=== PATIENT | male | born 1965 | race Caucasian/White ===

== ENCOUNTER 2016-05-13 15:13 | Emergency (ER) | payer OTHER ==
--- NOTE | 2016-05-13 17:09 | DIAGNOSTIC IMAGING REPORT ---
PROCEDURE: XR CHEST 2 VIEW INDICATION: CHEST PAIN TECHNIQUE: PA and lateral views. COMPARISON: None. FINDINGS: Allowing for overlying wires and electrodes, lungs are clear. Heart and mediastinum are normal. Mild degenerative changes of the mid thoracic spine IMPRESSION: 1. Negative chest.
--- NOTE | 2016-05-13 20:26 | ED NURSING NOTES ---
Clinical Report - Nurses [facility] [address] [place] [address] 05/13/2016 15:13 Patient: PHILIP STRONG TRIAGE Triage time 1520. Acuity: LEVEL 3. Chief Complaint: CHEST PAIN. Alert. No acute distress. --15:27 Annel Hand 15:23 05/13/16. BP: 140/91. HR: 66. RR: 18. O2 saturation: 99%. Temp: 98.1 F. Pain level now 07/23. --15:27 Annel Hand. Weight: 90.7 kg. Height/Length: 72 inches. BMI: 27.1. --15:22 Annel Hand. Medications None. --15:25 Annel Hand. Allergies No Known Drug Allergy. --15:25 Annel Hand. History Arrived by private vehicle. Historian: patient. Accompanied by spouse. This started yesterday. ( Pt c/o dull achey cp x 1 day, constant, sts when you push on it pain radiates upwards and gets worse, sts he has been seen before for this and had a stress test 2 yrs ago that was clean). Treatment DIGITAL ACCOUNT DIRECTOR: None. SOCIAL HX: Alcohol use. Last drink was 5 years ago. History of drug use. (90 days ago). --15:27 Annel Hand. PROBLEMS: Pharyngitis. Chest Wall Pain. Abdominal Pain. --15:25 Annel Hand. ADDITIONAL SURGERIES: Tonsillectomy. --15:25 Annel Hand. Interventions ID band on patient. To treatment room. --15:27 Annel Hand. PHYSICAL ASSESSMENT Ambulatory to room. GENERAL / NEURO / PSYCH: Alert. Oriented X 4. Appears anxious. HEENT: Mucous membranes are pink. RESPIRATORY: Respirations not labored. Chest pain reproducible. Chest wall tenderness. Breath sounds within normal limits. CVS: Normal sinus rhythm noted. Heart sounds within normal limits. Pulses within normal limits. Capillary refill less than 2 seconds. GI / : Abdomen soft and nontender. EXTREMITIES: No lower extremity edema. SKIN: Skin is warm and dry. Normal skin turgor. Skin is non-tender. --15:28 Annel Hand. NURSING PROGRESS NOTES 15:28 05/13/2016 Site #1 started via IV in the right antecubital space with an 20g angiocath, with aseptic technique and good blood return; one attempt. Blood drawn: rainbow set. Labeled in the presence of the patient and sent to the lab. Saline lock flushed with 10 mL saline. --15:28 Annel Hand EKG time: (15:29). EKG was performed by a tech and shown to the ED physician. --15:31 Torres Guerrero 16:05. ( Pt out to Xray). --16:12 Giovanna Shannon 17:31 05/13/16. BP: 129/90. HR: 65. RR: 16. O2 saturation: 100%. --17:31 Annel Hand The patient reports no complaints and he is calm and resting quietly. Overall patient status is the same- he states feels the same. ( Pt playing on phone sitting up in stretcher). Patient informed about reason for wait. Patient waiting for lab results. --17:31 Annel Hand 18:41 05/13/16. BP: 130/86. HR: 68. RR: 12. O2 saturation: 100%. Pain level now 4/10. --18:42 Annel Hand The patient reports no complaints and he is calm and resting quietly. Patient and family informed about reason for wait. Patient waiting for disposition. --18:42 Annel Hand 20:38 05/13/2016 Site #1 removed upon discharge. Bandage applied. --20:38 Annel Hand. DISPOSITION / DISCHARGE Departure time: 2034. Condition at departure: unchanged and stable. No learning barriers present. Discharge instructions provided and reviewed with the patient and spouse. Reviewed medication(s). Patient and spouse verbalized understanding. Written instructions provided in Pakistani. The patient was discharged by the physician. He was discharged home and accompanied by spouse. He left the Emergency Department ambulatory and via private vehicle. Spouse driving. --20:38 Annel Hand 20:37 05/13/16. BP: 122/80. HR: 80. RR: 16. O2 saturation: 99%. Pain level now 07/23. --20:38 Annel Hand. Locked/Released at 05/13/2016 20:39 by Annel Hand,
--- NOTE | 2016-05-13 20:26 | ED ORDER SUMMARY ---
..... Patient: PHILIP STRONG OrderSheet [facility] VisitID: [id number] [place] [address] 51y, M Registration Date/Time: 05/13/2016 ORDER SHEET Weight: 90.7 kg Allergies: No Known Drug Allergy GENERAL ORDERS: CBC w Diff Urgent (15:43 05/13/2016 EBonham per protocol) (15:44 Ansley Delvalle) (Cancelled: Duplicate Order15:45 Ansley Delvalle) (Ack 15:47 RKaruga) CMP Urgent (15:43 05/13/2016 EBonham per protocol) (15:44 Ansley Delvalle) (Cancelled: Duplicate Order15:45 Ansley Delvalle) (Ack 15:47 RKaruga) Cardiac Panel Stat (15:43 05/13/2016 EBonham per protocol) (15:44 Ansley Delvalle) (Cancelled: Duplicate Order15:45 Ansley Delvalle) (Ack 15:47 RKaruga) EKG - ER Stat (15:43 05/13/2016 EBonham per protocol) (Ack 15:47 RKaruga) Chest 2V Urgent (15:44 05/13/2016 Ansley Delvalle) (Ack 16:01 RKaruga) (16:11 RKaruga) Sales Account Manager (Continuous) (cp) (15:44 05/13/2016 Ansley Delvalle) (15:45 EBonham) CBC w Diff Urgent (15:44 05/13/2016 Ansley Delvalle) (Ack 16:01 RKmayuga) CMP Urgent (15:44 05/13/2016 Ansley Delvalle) (Ack 16:01 Breanna) Troponin-I Urgent (15:44 05/13/2016 Ansley Delvalle) (Ack 16:01 Boni) Pulse oximeter (15:44 05/13/2016 Ansley Delvalle) (15:45 EBonham) EKG - ER Stat (15:44 05/13/2016 Ansley Delvalle) (16:03 RKaruga) Troponin-I (draw 2 hours after first troponin drawn) Urgent (17:11 05/13/2016 Ansley Delvalle) (Ack 17:16 RKaruga) Consult - Senior Business Manager (18:53 05/13/2016 Ansley Delvalle) (19:59 LTapper) CPK Urgent (19:51 05/13/2016 Ansley Delvalle) (Ack 19:59 LTapper) MEDICATION ORDERS: IV FLUIDS: IV Saline Lock (15:44 05/13/2016 Ansley Delvalle) (15:48 [facility]) ORDER SHEET NOTES: [Electronically signed by Annel Hand (20:39 05/13/2016)] [Electronically signed by Ramón Marques Dr. (09:18 05/16/2016)] [Electronically locked/signed by Annel Hand (20:39 05/13/2016)]
--- NOTE | 2016-05-13 20:26 | ED NURSING NOTES ---
Clinical Report - Nurses [facility] [address] [place] [address] 05/13/2016 15:13 Patient: PHILIP STRONG TRIAGE Triage time 1520. Acuity: LEVEL 3. Chief Complaint: CHEST PAIN. Alert. No acute distress. --15:27 Annel Hand 15:23 05/13/16. BP: 140/91. HR: 66. RR: 18. O2 saturation: 99%. Temp: 98.1 F. Pain level now 07/23. --15:27 Annel Hand. Weight: 90.7 kg. Height/Length: 72 inches. BMI: 27.1. --15:22 Annel Hand. Medications None. --15:25 Annel Hand. Allergies No Known Drug Allergy. --15:25 Annel Hand. History Arrived by private vehicle. Historian: patient. Accompanied by spouse. This started yesterday. ( Pt c/o dull achey cp x 1 day, constant, sts when you push on it pain radiates upwards and gets worse, sts he has been seen before for this and had a stress test 2 yrs ago that was clean). Treatment DRYWALL CONTRACTOR: None. SOCIAL HX: Alcohol use. Last drink was 5 years ago. History of drug use. (90 days ago). --15:27 Annel Hand. PROBLEMS: Pharyngitis. Chest Wall Pain. Abdominal Pain. --15:25 Annel Hand. ADDITIONAL SURGERIES: Tonsillectomy. --15:25 Annel Hand. Interventions ID band on patient. To treatment room. --15:27 Annel Hand. PHYSICAL ASSESSMENT Ambulatory to room. GENERAL / NEURO / PSYCH: Alert. Oriented X 4. Appears anxious. HEENT: Mucous membranes are pink. RESPIRATORY: Respirations not labored. Chest pain reproducible. Chest wall tenderness. Breath sounds within normal limits. CVS: Normal sinus rhythm noted. Heart sounds within normal limits. Pulses within normal limits. Capillary refill less than 2 seconds. GI / : Abdomen soft and nontender. EXTREMITIES: No lower extremity edema. SKIN: Skin is warm and dry. Normal skin turgor. Skin is non-tender. --15:28 Annel Hand. NURSING PROGRESS NOTES 15:28 05/13/2016 Site #1 started via IV in the right antecubital space with an 20g angiocath, with aseptic technique and good blood return; one attempt. Blood drawn: rainbow set. Labeled in the presence of the patient and sent to the lab. Saline lock flushed with 10 mL saline. --15:28 Annel Hand EKG time: (15:29). EKG was performed by a tech and shown to the ED physician. --15:31 Torres Guerrero 16:05. ( Pt out to Xray). --16:12 Giovanna Shannon 17:31 05/13/16. BP: 129/90. HR: 65. RR: 16. O2 saturation: 100%. --17:31 Annel Hand The patient reports no complaints and he is calm and resting quietly. Overall patient status is the same- he states feels the same. ( Pt playing on phone sitting up in stretcher). Patient informed about reason for wait. Patient waiting for lab results. --17:31 Annel Hand 18:41 05/13/16. BP: 130/86. HR: 68. RR: 12. O2 saturation: 100%. Pain level now 4/10. --18:42 Annel Hand The patient reports no complaints and he is calm and resting quietly. Patient and family informed about reason for wait. Patient waiting for disposition. --18:42 Annel Hand 20:38 05/13/2016 Site #1 removed upon discharge. Bandage applied. --20:38 Annel Hand. DISPOSITION / DISCHARGE Departure time: 2034. Condition at departure: unchanged and stable. No learning barriers present. Discharge instructions provided and reviewed with the patient and spouse. Reviewed medication(s). Patient and spouse verbalized understanding. Written instructions provided in Greenlandic. The patient was discharged by the physician. He was discharged home and accompanied by spouse. He left the Emergency Department ambulatory and via private vehicle. Spouse driving. --20:38 Annel Hand 20:37 05/13/16. BP: 122/80. HR: 80. RR: 16. O2 saturation: 99%. Pain level now 07/23. --20:38 Annel Hand. Locked/Released at 05/13/2016 20:39 by Annel Hand,
--- NOTE | 2016-05-13 20:26 | ED ORDER SUMMARY ---
..... Patient: PHILIP STRONG OrderSheet [facility] VisitID: [id number] [place] [address] 51y, M Registration Date/Time: 05/13/2016 ORDER SHEET Weight: 90.7 kg Allergies: No Known Drug Allergy GENERAL ORDERS: CBC w Diff Urgent (15:43 05/13/2016 EBonham per protocol) (15:44 Ansley Delvalle) (Cancelled: Duplicate Order15:45 Ansley Delvalle) (Ack 15:47 RKaruga) CMP Urgent (15:43 05/13/2016 EBonham per protocol) (15:44 Ansley Delvalle) (Cancelled: Duplicate Order15:45 Ansley Delvalle) (Ack 15:47 RKaruga) Cardiac Panel Stat (15:43 05/13/2016 EBonham per protocol) (15:44 Ansley Delvalle) (Cancelled: Duplicate Order15:45 Ansley Delvalle) (Ack 15:47 RKaruga) EKG - ER Stat (15:43 05/13/2016 EBonham per protocol) (Ack 15:47 RKaruga) Chest 2V Urgent (15:44 05/13/2016 Ansley Delvalle) (Ack 16:01 RKaruga) (16:11 RKaruga) User Experience Researcher (Continuous) (cp) (15:44 05/13/2016 Ansley Delvalle) (15:45 EBonham) CBC w Diff Urgent (15:44 05/13/2016 Ansley Delvalle) (Ack 16:01 RKmayuga) CMP Urgent (15:44 05/13/2016 Ansley Delvalle) (Ack 16:01 Breanna) Troponin-I Urgent (15:44 05/13/2016 Ansley Delvalle) (Ack 16:01 Boni) Pulse oximeter (15:44 05/13/2016 Ansley Delvalle) (15:45 EBonham) EKG - ER Stat (15:44 05/13/2016 Ansley Delvalle) (16:03 RKaruga) Troponin-I (draw 2 hours after first troponin drawn) Urgent (17:11 05/13/2016 Ansley Delvalle) (Ack 17:16 RKaruga) Consult - Servicing Manager (18:53 05/13/2016 Ansley Delvalle) (19:59 LTapper) CPK Urgent (19:51 05/13/2016 Ansley Delvalle) (Ack 19:59 LTapper) MEDICATION ORDERS: IV FLUIDS: IV Saline Lock (15:44 05/13/2016 Ansley Delvalle) (15:48 [facility]) ORDER SHEET NOTES: [Electronically signed by Annel Hand (20:39 05/13/2016)] [Electronically signed by Ramón Marques Dr. (09:18 05/16/2016)] [Electronically locked/signed by Annel Hand (20:39 05/13/2016)]
--- NOTE | 2016-05-13 20:26 | ED CLINICAL REPORT ---
Clinical Report - Physicians/Mid Levels [facility] [address] [place] [address] 05/13/2016 15:13 Patient: PHILIP STRONG Arrived- By private vehicle. Historian- patient. HISTORY OF PRESENT ILLNESS Chief Complaint: CHEST PAIN. At its maximum, severity described as moderate. When seen in the E.D., severity described as mild. Modifying factors- (reports it is not exertional). Not worsened by anything. Not relieved by anything. 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 It was abrupt in onset and has been constant but is not gone now. Onset during light activity. It is described as located in the left chest area. No radiation. No nausea, vomiting, difficulty breathing or diaphoresis. (reports not hemoptysis, leg swelling, recent trauma/surgery). No additional chest pain. Similar symptoms previously: (a few times but was not diagnosed with anything). ( reports normal stress test several years ago. states he is unsure if it was throught his PCP or cardiology.). Recent medical care: Not recently seen/assessed. REVIEW OF SYSTEMS No pedal edema, calf pain or skin rash. All systems otherwise negative, except as recorded above. PAST HISTORY Denies the following risk factors for DVT/PE - history of DVT and pulmonary embolism, recent surgery, recent TX and congestive heart failure. Denies the following risk factors for DVT/PE - cancer, clotting disorder, estrogens, obesity and immobility. Denies the following risk factors for DVT/PE - advanced in age and vena cava filter. SOCIAL HISTORY Never smoker. History of drug use in the past: marijuana. No alcohol use. Is a local resident. FAMILY HISTORY History of heart disease (no early family history). ADDITIONAL NOTES The nursing notes have been reviewed. PHYSICAL EXAM Vital Signs: 05/13/2016 15:23 BP: 140/91. HR: 66. RR: 18. O2 saturation: 99%. Temp: 98.1 F. Blood pressure normal. Oxygen saturation normal. Appearance: Alert. Oriented X3. No acute distress. Eyes: Pupils equal, round and reactive to light. Eyes normal inspection. ENT: Ears normal. Nose normal. Pharynx normal. Neck: Normal inspection. Neck supple. No JVD. CVS: Normal heart rate and rhythm. Heart sounds normal. Pulses normal. No decreased pulses. Respiratory: No respiratory distress. Breath sounds normal. No rales, rhonchi or wheezes. (reportducible pain at the left 3rd costosternal joint). Abdomen: Soft and nontender. Bowel sounds normal. Back: Normal external inspection. Skin: Skin warm and dry. Normal skin color. No rash. Normal skin turgor. Extremities: Extremities exhibit normal ROM. No lower extremity edema. LABS, X-RAYS, AND EKG EKG: No acute process. No acute ischemia. Normal EKG. Normal sinus rhythm. Rate: 62. Normal P waves. Normal CONI. Normal QRS complex. Normal axis. Normal ST and T waves, QT and QTc. The study has been interpreted contemporaneously by me. The study has been independently viewed by me. The EKG appears to be a good tracing. Chest X-ray: No acute disease. Normal lung markings present. Normal heart size. Mediastinum normal. Great vessels normal. No infiltrate. Views: PA and lateral. Technique: good. The X-rays were independently viewed by me and interpreted contemporaneously by me. Laboratory Tests: CBC w Diff: (TEOFILO: 05/13/2016 15:30) ( MsgRcvd 05/13/2016 16:32) Final results Test Result Flag Units (Reference) WHITE BLOOD COUNT 5.9 K/uL (4.5-11.5) RED BLOOD COUNT 5.07 M/uL (4.50-5.90) HEMOGLOBIN 15.8 gm/dL (13.5-17.5) HEMATOCRIT 46.3 % (41.0-53.0) MEAN CELL VOLUME 91 fL (80-100) MEAN CORPUSCULAR HGB 31 pg (26-34) MEAN CORPUSCULAR HGB CONC 34 g/dL (31-37) RED CELL DISTRIBUTION WIDTH 12.8 % (11.6-14.8) PLATELET COUNT 213 K/uL (150-400) NEUTROPHIL % 54.3 % (50-75) LYMPH % 32.4 % (25-40) MONO % 8.1 % (3-14) EOSINOPHIL % 4.6 H % (0-4) BASOPHIL % 0.6 % (0-2) Troponin-I: (TEOFILO: 05/13/2016 17:38) ( MsgRcvd 05/13/2016 18:09) Final results Test Result Flag Units (Reference) TROPONIN I <0.05 ng/mL (0.00-1.5) TROPONIN REFERENCE RANGE:<0.1 NEGATIVE0.1-1.5 INDETERMINANT>1.5 POSITIVE CMP: (TEOFILO: 05/13/2016 15:30) ( MsgRcvd 05/13/2016 16:49) Final results Test Result Flag Units (Reference) GLUCOSE 104 mg/dL (70-110) BUN 19 H mg/dL (7-18) CREATININE 0.8 mg/dL (0.6-1.3) Estimated GFR >60 mL/min Estimated GFR- >60 mL/min Note: Persistent reduction over 3 months in eGFR<60 mL/min/1.73 m2 defines CKD. Patients with eGFR values>=60 mL/min/1.73 m2 may also have CKD if evidence ofpersistent proteinuria. Additional information may be foundat www.kidney.org. SODIUM 141 mmol/L (136-145) POTASSIUM 3.9 mmol/L (3.5-5.1) CHLORIDE 105 mmol/L (98-107) CARBON DIOXIDE 27 mmol/L (21-32) CALCIUM 8.8 mg/dL (8.5-10.1) TOTAL PROTEIN 7.3 g/dL (6.4-8.2) ALBUMIN 4.3 g/dL (3.3-5.0) BILIRUBIN, TOTAL 1.8 H mg/dL (0.0-1.0) ALKALINE PHOSPHATASE 70 U/L (46-116) AST (SGOT) 20 U/L (15-37) ALT (SGPT) 47 U/L (12-78) TROPONIN I 0.07 ng/mL (0.00-1.5) TROPONIN REFERENCE RANGE:<0.1 NEGATIVE0.1-1.5 INDETERMINANT>1.5 POSITIVE . PROGRESS AND PROCEDURES Course of Care: The patient is a pleasant 51 yo male with no pertinent past medical history presenting for chest pain. Symptoms have been going < 8 hours. Will need delta trop. Patient agreeable to work up. Patient currently PERC negative. Do not feel patient needs further work up for PE. Symptoms not consitent with thoracic AA. Patient to be evuated with labs, chest, xray, and EKG. EKG does not show any acute abnormalities. Patient updated on study. Reports feeling well. Chest xray and first troponin are normal. Trop undetectable. Second one to be drawn at 2 hours. Work up shows patient to have negative delta trop. patient resting in no acute distress. Cardiology consulted in regards to patient's presentation. Patient offered admission and further work up for cardiac disease. After discussion with patient about the possibilities of studies and reasons for doing so, patient reports he would like to follow up in the clinic. Patient understands the risk and benefits. Discussed with patient work up, diagnosis, home care, follow up, and return precautions. All questions answered. Patient expressed understanding of these instructions and was agreeable to them. Consult obtained from cardiology. Disposition: Discharged. Condition: good. CLINICAL IMPRESSION 05/13/2016 18:41 BP: 130/86. HR: 68. RR: 12. O2 saturation: 100%. Blood pressure normal. Oxygen saturation normal. Atypical chest pain .12 lead EKG performed. (acute left sided). INSTRUCTIONS Warnings: GENERAL WARNINGS: Return or contact your physician immediately if your condition worsens or changes unexpectedly, if not improving as expected, or if other problems arise. SPECIFICALLY, return if you develop chest, neck, jaw, shoulder, arm, or back pain, difficulty breathing, a fluttering sensation in your chest, lightheadedness, fainting, excessive fatigue, or sudden sweating. Your Current Medications: CONTINUE TAKING THE FOLLOWING MEDICATIONS: None*. OTC Medications: Aspirin 81 mg (available over the counter): take 1 orally every 24 hours. Dispense thirty (30). No refills. Follow-up: Return to the emergency department as needed. Follow up with your doctor in three days. Reason for referral: recheck today's concerns. Summary of care provided to patient via paper. Screening today revealed the patient's blood pressure to be in the normal range. The patient should follow up with a primary care provider for blood pressure management. Understanding of the discharge instructions verbalized by patient. Follow-up with: Rodrick Soto MD, Cardiology, , [facility] - Cardiology, [address] [place] [address] [address], [facility], [address] Follow up in three days. Reason for referral: recheck today's concerns. Summary of care provided to patient via paper. (Electronically signed by Ramón Marques Dr. 05/16/2016 9:18)
--- NOTE | 2016-05-13 20:26 | ED CLINICAL REPORT ---
Clinical Report - Physicians/Mid Levels [facility] [address] [place] [address] 05/13/2016 15:13 Patient: PHILIP STRONG Arrived- By private vehicle. Historian- patient. HISTORY OF PRESENT ILLNESS Chief Complaint: CHEST PAIN. At its maximum, severity described as moderate. When seen in the E.D., severity described as mild. Modifying factors- (reports it is not exertional). Not worsened by anything. Not relieved by anything. This started today a few hours [employer] and is still present but is improving. It was abrupt in onset and has been constant but is not gone now. Onset during light activity. It is described as located in the left chest area. No radiation. No nausea, vomiting, difficulty breathing or diaphoresis. (reports not hemoptysis, leg swelling, recent trauma/surgery). No additional chest pain. Similar symptoms previously: (a few times but was not diagnosed with anything). ( reports normal stress test several years ago. states he is unsure if it was throught his PCP or cardiology.). Recent medical care: Not recently seen/assessed. REVIEW OF SYSTEMS No pedal edema, calf pain or skin rash. All systems otherwise negative, except as recorded above. PAST HISTORY Denies the following risk factors for DVT/PE - history of DVT and pulmonary embolism, recent surgery, recent CA and congestive heart failure. Denies the following risk factors for DVT/PE - cancer, clotting disorder, estrogens, obesity and immobility. Denies the following risk factors for DVT/PE - advanced in age and vena cava filter. SOCIAL HISTORY Never smoker. History of drug use in the past: marijuana. No alcohol use. Is a local resident. FAMILY HISTORY History of heart disease (no early family history). ADDITIONAL NOTES The nursing notes have been reviewed. PHYSICAL EXAM Vital Signs: 05/13/2016 15:23 BP: 140/91. HR: 66. RR: 18. O2 saturation: 99%. Temp: 98.1 F. Blood pressure normal. Oxygen saturation normal. Appearance: Alert. Oriented X3. No acute distress. Eyes: Pupils equal, round and reactive to light. Eyes normal inspection. ENT: Ears normal. Nose normal. Pharynx normal. Neck: Normal inspection. Neck supple. No JVD. CVS: Normal heart rate and rhythm. Heart sounds normal. Pulses normal. No decreased pulses. Respiratory: No respiratory distress. Breath sounds normal. No rales, rhonchi or wheezes. (reportducible pain at the left 3rd costosternal joint). Abdomen: Soft and nontender. Bowel sounds normal. Back: Normal external inspection. Skin: Skin warm and dry. Normal skin color. No rash. Normal skin turgor. Extremities: Extremities exhibit normal ROM. No lower extremity edema. LABS, X-RAYS, AND EKG EKG: No acute process. No acute ischemia. Normal EKG. Normal sinus rhythm. Rate: 62. Normal P waves. Normal CONI. Normal QRS complex. Normal axis. Normal ST and T waves, QT and QTc. The study has been interpreted contemporaneously by me. The study has been independently viewed by me. The EKG appears to be a good tracing. Chest X-ray: No acute disease. Normal lung markings present. Normal heart size. Mediastinum normal. Great vessels normal. No infiltrate. Views: PA and lateral. Technique: good. The X-rays were independently viewed by me and interpreted contemporaneously by me. Laboratory Tests: CBC w Diff: (TEOFILO: 05/13/2016 15:30) ( MsgRcvd 05/13/2016 16:32) Final results Test Result Flag Units (Reference) WHITE BLOOD COUNT 5.9 K/uL (4.5-11.5) RED BLOOD COUNT 5.07 M/uL (4.50-5.90) HEMOGLOBIN 15.8 gm/dL (13.5-17.5) HEMATOCRIT 46.3 % (41.0-53.0) MEAN CELL VOLUME 91 fL (80-100) MEAN CORPUSCULAR HGB 31 pg (26-34) MEAN CORPUSCULAR HGB CONC 34 g/dL (31-37) RED CELL DISTRIBUTION WIDTH 12.8 % (11.6-14.8) PLATELET COUNT 213 K/uL (150-400) NEUTROPHIL % 54.3 % (50-75) LYMPH % 32.4 % (25-40) MONO % 8.1 % (3-14) EOSINOPHIL % 4.6 H % (0-4) BASOPHIL % 0.6 % (0-2) Troponin-I: (TEOFILO: 05/13/2016 17:38) ( MsgRcvd 05/13/2016 18:09) Final results Test Result Flag Units (Reference) TROPONIN I <0.05 ng/mL (0.00-1.5) TROPONIN REFERENCE RANGE:<0.1 NEGATIVE0.1-1.5 INDETERMINANT>1.5 POSITIVE CMP: (TEOFILO: 05/13/2016 15:30) ( MsgRcvd 05/13/2016 16:49) Final results Test Result Flag Units (Reference) GLUCOSE 104 mg/dL (70-110) BUN 19 H mg/dL (7-18) CREATININE 0.8 mg/dL (0.6-1.3) Estimated GFR >60 mL/min Estimated GFR- >60 mL/min Note: Persistent reduction over 3 months in eGFR<60 mL/min/1.73 m2 defines CKD. Patients with eGFR values>=60 mL/min/1.73 m2 may also have CKD if evidence ofpersistent proteinuria. Additional information may be foundat www.kidney.org. SODIUM 141 mmol/L (136-145) POTASSIUM 3.9 mmol/L (3.5-5.1) CHLORIDE 105 mmol/L (98-107) CARBON DIOXIDE 27 mmol/L (21-32) CALCIUM 8.8 mg/dL (8.5-10.1) TOTAL PROTEIN 7.3 g/dL (6.4-8.2) ALBUMIN 4.3 g/dL (3.3-5.0) BILIRUBIN, TOTAL 1.8 H mg/dL (0.0-1.0) ALKALINE PHOSPHATASE 70 U/L (46-116) AST (SGOT) 20 U/L (15-37) ALT (SGPT) 47 U/L (12-78) TROPONIN I 0.07 ng/mL (0.00-1.5) TROPONIN REFERENCE RANGE:<0.1 NEGATIVE0.1-1.5 INDETERMINANT>1.5 POSITIVE . PROGRESS AND PROCEDURES Course of Care: The patient is a pleasant 51 yo male with no pertinent past medical history presenting for chest pain. Symptoms have been going < 8 hours. Will need delta trop. Patient agreeable to work up. Patient currently PERC negative. Do not feel patient needs further work up for PE. Symptoms not consitent with thoracic AA. Patient to be evuated with labs, chest, xray, and EKG. EKG does not show any acute abnormalities. Patient updated on study. Reports feeling well. Chest xray and first troponin are normal. Trop undetectable. Second one to be drawn at 2 hours. Work up shows patient to have negative delta trop. patient resting in no acute distress. Cardiology consulted in regards to patient's presentation. Patient offered admission and further work up for cardiac disease. After discussion with patient about the possibilities of studies and reasons for doing so, patient reports he would like to follow up in the clinic. Patient understands the risk and benefits. Discussed with patient work up, diagnosis, home care, follow up, and return precautions. All questions answered. Patient expressed understanding of these instructions and was agreeable to them. Consult obtained from cardiology. Disposition: Discharged. Condition: good. CLINICAL IMPRESSION 05/13/2016 18:41 BP: 130/86. HR: 68. RR: 12. O2 saturation: 100%. Blood pressure normal. Oxygen saturation normal. Atypical chest pain .12 lead EKG performed. (acute left sided). INSTRUCTIONS Warnings: GENERAL WARNINGS: Return or contact your physician immediately if your condition worsens or changes unexpectedly, if not improving as expected, or if other problems arise. SPECIFICALLY, return if you develop chest, neck, jaw, shoulder, arm, or back pain, difficulty breathing, a fluttering sensation in your chest, lightheadedness, fainting, excessive fatigue, or sudden sweating. Your Current Medications: CONTINUE TAKING THE FOLLOWING MEDICATIONS: None*. OTC Medications: Aspirin 81 mg (available over the counter): take 1 orally every 24 hours. Dispense thirty (30). No refills. Follow-up: Return to the emergency department as needed. Follow up with your doctor in three days. Reason for referral: recheck today's concerns. Summary of care provided to patient via paper. Screening today revealed the patient's blood pressure to be in the normal range. The patient should follow up with a primary care provider for blood pressure management. Understanding of the discharge instructions verbalized by patient. Follow-up with: Rodrick Soto MD, Cardiology, , [facility], [address] [place] [address] [address], [facility], [address] Follow up in three days. Reason for referral: recheck today's concerns. Summary of care provided to patient via paper. (Electronically signed by Ramón Marques Dr. 05/16/2016 9:18)
--- NOTE | 2016-05-16 09:18 | ED DISCHARGE INSTRUCTIONS ---
Patient: PHILIP STRONG General Instructions [facility] VisitID: [id number] [place] [address] 51y, M Registration Date/Time: 05/13/2016 05/13/2016 18:41 BP: 130/86. HR: 68. RR: 12. O2 saturation: 100%. Blood pressure normal. Oxygen saturation normal. Atypical chest pain .12 lead EKG performed. (acute left sided). INSTRUCTIONS Warnings: GENERAL WARNINGS: Return or contact your physician immediately if your condition worsens or changes unexpectedly, if not improving as expected, or if other problems arise. SPECIFICALLY, return if you develop chest, neck, jaw, shoulder, arm, or back pain, difficulty breathing, a fluttering sensation in your chest, lightheadedness, fainting, excessive fatigue, or sudden sweating. Your Current Medications: CONTINUE TAKING THE FOLLOWING MEDICATIONS: None*. OTC Medications: Aspirin 81 mg (available over the counter): take 1 orally every 24 hours. Dispense thirty (30). No refills. Follow-up: Return to the emergency department as needed. Follow up with your doctor in three days. Reason for referral: recheck today's concerns. Summary of care provided to patient via paper. Screening today revealed the patient's blood pressure to be in the normal range. The patient should follow up with a primary care provider for blood pressure management. Understanding of the discharge instructions verbalized by patient. Follow-up with: Rodrick Soto MD, Cardiology, , [facility], [address] [place] [address] Follow up in three days. Reason for referral: recheck today's concerns. Summary of care provided to patient via paper. ADDITIONAL INFORMATION Chest Pain, Uncertain Cause Chest pain can happen for a number of reasons. Sometimes the cause can not be determined. If yourcondition does not seem serious, and your pain does not appear to be coming from your heart, your doctor may recommend watching it closely. Sometimes the signs of a serious problem take more time to appear. Therefore, watch for the warning signs listed below. Home care After your visit, follow these recommendations: Rest today and avoid strenuous activity. Take any prescribed medicine as directed. Follow-up care Follow up with your doctor or this facility as instructed or if you do not start to feel better within 24 hours. Call 911 Get immediate medical attention if any of the following occur: A change in the type of pain: if it feels different, becomes more severe, lasts longer, or begins to spread into your shoulder, arm, neck, jaw or back Shortness of breath or increased pain with breathing Weakness, dizziness, or fainting Rapid heart beat Get prompt medical attention Call your doctor right away if any of the following occur: Cough with dark colored sputum (phlegm) or blood Fever of 100.4F(38C) or higher, or as directed by your health care provider Swelling, pain or redness in one leg Aspirin Oral tablet What is this medicine? ASPIRIN ( pir in) is a pain reliever. It is used to treat mild pain and fever. This medicine is also used as directed by a doctor to prevent and to treat heart attacks, to prevent strokes, and to treat arthritis or inflammation. How should I use this medicine? Take this medicine by mouth with a glass of water. Follow the directions on the package or prescription label. You can take this medicine with or without food. If it upsets your stomach, take it with food. Do not take your medicine more often than directed. Talk to your biology manager regarding the use of this medicine in children. While this drug may be prescribed for children as young as 12 years of age for selected conditions, precautions do apply. Children and teenagers should not use this medicine to treat chicken pox or flu symptoms unless directed by a doctor. Patients over 65 years old may have a stronger reaction and need a smaller dose. What side effects may I notice from receiving this medicine? Side effects that you should report to your doctor or health acute care nurse as soon as possible: allergic reactions like skin rash, itching or hives, swelling of the face, lips, or tongue breathing problems changes in hearing, ringing in the ears confusion general ill feeling or flu-like symptoms pain on swallowing redness, blistering, peeling or loosening of the skin, including inside the mouth or nose signs and symptoms of bleeding such as bloody or black, tarry stools; red or dark-brown urine; spitting up blood or brown material that looks like coffee grounds; red spots on the skin; unusual bruising or bleeding from the eye, gums, or nose trouble passing urine or change in the amount of urine unusually weak or tired yellowing of the eyes or skin Side effects that usually do not require medical attention (report to your doctor or health acute care nurse if they continue or are bothersome): diarrhea or constipation nausea, vomiting stomach gas, heartburn What may interact with this medicine? Do not take this medicine with any of the following medications: cidofovir ketorolac probenecid This medicine may also interact with the following medications: alcohol alendronate bismuth subsalicylate flavocoxid herbal supplements like feverfew, garlic, ruth ann, ginkgo biloba, horse chestnut medicines for diabetes or glaucoma like acetazolamide, methazolamide medicines for gout medicines that treat or prevent blood clots like enoxaparin, heparin, ticlopidine, warfarin other aspirin and aspirin-like medicines NSAIDs, medicines for pain and inflammation, like ibuprofen or naproxen pemetrexed sulfinpyrazone varicella live vaccine What if I miss a dose? If you are taking this medicine on a regular schedule and miss a dose, take it as soon as you can. If it is almost time for your next dose, take only that dose. Do not take double or extra doses. Where should I keep my medicine? Keep out of the reach of children. Store at room temperature between 15 and 30 degrees C (59 and 86 degrees F). Protect from heat and moisture. Do not use this medicine if it has a strong vinegar smell. Throw away any unused medicine after the expiration date. What should I tell my health care provider before I take this medicine? They need to know if you have any of these conditions: anemia asthma bleeding problems child with chickenpox, the flu, or other viral infection diabetes gout if you frequently drink alcohol containing drinks kidney disease liver disease low level of vitamin K lupus smoke tobacco stomach ulcers or other problems an unusual or allergic reaction to aspirin, tartrazine dye, other medicines, dyes, or preservatives or trying to get breast-feeding What should I watch for while using this medicine? If you are treating yourself for pain, tell your doctor or health acute care nurse if the pain lasts more than 10 days, if it gets worse, or if there is a new or different kind of pain. Tell your doctor if you see redness or swelling. Also, check with your doctor if you have a fever that lasts for more than 3 days. Only take this medicine to prevent heart attacks or blood clotting if prescribed by your doctor or health acute care nurse. Do not take aspirin or aspirin-like medicines with this medicine. Too much aspirin can be dangerous. Always read the labels carefully. This medicine can irritate your stomach or cause bleeding problems. Do not smoke cigarettes or drink alcohol while taking this medicine. Do not lie down for 30 minutes after taking this medicine to prevent irritation to your throat. If you are scheduled for any medical or dental procedure, tell your healthcare provider that you are taking this medicine. You may need to stop taking this medicine before the procedure. You have been given the following additional information: Chest Pain, Uncertain Cause Aspirin Oral tablet (Electronically signed by Ramón Marques Dr. 05/16/2016 9:18)
--- NOTE | 2016-05-16 09:18 | ED DISCHARGE INSTRUCTIONS ---
Patient: PHILIP STRONG General Instructions [facility] VisitID: [id number] [place] [address] 51y, M Registration Date/Time: 05/13/2016 05/13/2016 18:41 BP: 130/86. HR: 68. RR: 12. O2 saturation: 100%. Blood pressure normal. Oxygen saturation normal. Atypical chest pain .12 lead EKG performed. (acute left sided). INSTRUCTIONS Warnings: GENERAL WARNINGS: Return or contact your physician immediately if your condition worsens or changes unexpectedly, if not improving as expected, or if other problems arise. SPECIFICALLY, return if you develop chest, neck, jaw, shoulder, arm, or back pain, difficulty breathing, a fluttering sensation in your chest, lightheadedness, fainting, excessive fatigue, or sudden sweating. Your Current Medications: CONTINUE TAKING THE FOLLOWING MEDICATIONS: None*. OTC Medications: Aspirin 81 mg (available over the counter): take 1 orally every 24 hours. Dispense thirty (30). No refills. Follow-up: Return to the emergency department as needed. Follow up with your doctor in three days. Reason for referral: recheck today's concerns. Summary of care provided to patient via paper. Screening today revealed the patient's blood pressure to be in the normal range. The patient should follow up with a primary care provider for blood pressure management. Understanding of the discharge instructions verbalized by patient. Follow-up with: Rodrick Soto MD, Cardiology, , [facility], [address] [place] [address] Follow up in three days. Reason for referral: recheck today's concerns. Summary of care provided to patient via paper. ADDITIONAL INFORMATION Chest Pain, Uncertain Cause Chest pain can happen for a number of reasons. Sometimes the cause can not be determined. If yourcondition does not seem serious, and your pain does not appear to be coming from your heart, your doctor may recommend watching it closely. Sometimes the signs of a serious problem take more time to appear. Therefore, watch for the warning signs listed below. Home care After your visit, follow these recommendations: Rest today and avoid strenuous activity. Take any prescribed medicine as directed. Follow-up care Follow up with your doctor or this facility as instructed or if you do not start to feel better within 24 hours. Call 911 Get immediate medical attention if any of the following occur: A change in the type of pain: if it feels different, becomes more severe, lasts longer, or begins to spread into your shoulder, arm, neck, jaw or back Shortness of breath or increased pain with breathing Weakness, dizziness, or fainting Rapid heart beat Get prompt medical attention Call your doctor right away if any of the following occur: Cough with dark colored sputum (phlegm) or blood Fever of 100.4F(38C) or higher, or as directed by your health care provider Swelling, pain or redness in one leg Aspirin Oral tablet What is this medicine? ASPIRIN ( pir in) is a pain reliever. It is used to treat mild pain and fever. This medicine is also used as directed by a doctor to prevent and to treat heart attacks, to prevent strokes, and to treat arthritis or inflammation. How should I use this medicine? Take this medicine by mouth with a glass of water. Follow the directions on the package or prescription label. You can take this medicine with or without food. If it upsets your stomach, take it with food. Do not take your medicine more often than directed. Talk to your manager of engineering regarding the use of this medicine in children. While this drug may be prescribed for children as young as 12 years of age for selected conditions, precautions do apply. Children and teenagers should not use this medicine to treat chicken pox or flu symptoms unless directed by a doctor. Patients over 65 years old may have a stronger reaction and need a smaller dose. What side effects may I notice from receiving this medicine? Side effects that you should report to your doctor or health manager long term care as soon as possible: allergic reactions like skin rash, itching or hives, swelling of the face, lips, or tongue breathing problems changes in hearing, ringing in the ears confusion general ill feeling or flu-like symptoms pain on swallowing redness, blistering, peeling or loosening of the skin, including inside the mouth or nose signs and symptoms of bleeding such as bloody or black, tarry stools; red or dark-brown urine; spitting up blood or brown material that looks like coffee grounds; red spots on the skin; unusual bruising or bleeding from the eye, gums, or nose trouble passing urine or change in the amount of urine unusually weak or tired yellowing of the eyes or skin Side effects that usually do not require medical attention (report to your doctor or health manager long term care if they continue or are bothersome): diarrhea or constipation nausea, vomiting stomach gas, heartburn What may interact with this medicine? Do not take this medicine with any of the following medications: cidofovir ketorolac probenecid This medicine may also interact with the following medications: alcohol alendronate bismuth subsalicylate flavocoxid herbal supplements like feverfew, garlic, ruth ann, ginkgo biloba, horse chestnut medicines for diabetes or glaucoma like acetazolamide, methazolamide medicines for gout medicines that treat or prevent blood clots like enoxaparin, heparin, ticlopidine, warfarin other aspirin and aspirin-like medicines NSAIDs, medicines for pain and inflammation, like ibuprofen or naproxen pemetrexed sulfinpyrazone varicella live vaccine What if I miss a dose? If you are taking this medicine on a regular schedule and miss a dose, take it as soon as you can. If it is almost time for your next dose, take only that dose. Do not take double or extra doses. Where should I keep my medicine? Keep out of the reach of children. Store at room temperature between 15 and 30 degrees C (59 and 86 degrees F). Protect from heat and moisture. Do not use this medicine if it has a strong vinegar smell. Throw away any unused medicine after the expiration date. What should I tell my health care provider before I take this medicine? They need to know if you have any of these conditions: anemia asthma bleeding problems child with chickenpox, the flu, or other viral infection diabetes gout if you frequently drink alcohol containing drinks kidney disease liver disease low level of vitamin K lupus smoke tobacco stomach ulcers or other problems an unusual or allergic reaction to aspirin, tartrazine dye, other medicines, dyes, or preservatives or trying to get breast-feeding What should I watch for while using this medicine? If you are treating yourself for pain, tell your doctor or health manager long term care if the pain lasts more than 10 days, if it gets worse, or if there is a new or different kind of pain. Tell your doctor if you see redness or swelling. Also, check with your doctor if you have a fever that lasts for more than 3 days. Only take this medicine to prevent heart attacks or blood clotting if prescribed by your doctor or health manager long term care. Do not take aspirin or aspirin-like medicines with this medicine. Too much aspirin can be dangerous. Always read the labels carefully. This medicine can irritate your stomach or cause bleeding problems. Do not smoke cigarettes or drink alcohol while taking this medicine. Do not lie down for 30 minutes after taking this medicine to prevent irritation to your throat. If you are scheduled for any medical or dental procedure, tell your healthcare provider that you are taking this medicine. You may need to stop taking this medicine before the procedure. You have been given the following additional information: Chest Pain, Uncertain Cause Aspirin Oral tablet (Electronically signed by Ramón Maqrues Dr. 05/16/2016 9:18)
--- NOTE | 2016-05-16 09:18 | ED MED RECONCILIATION SUMMARY ---
Patient: PHILIP STRONG Medication Reconciliation Report [facility] VisitID: [id number] [address] [place] [address] 51y, M Registration Date/Time: 05/13/2016 Weight: 90.7 kg Height/Length: 72 in. BMI: 27.1 ALLERGIES: No Known Drug Allergy The patient's Home Medications are listed below: NONE. The source(s) of the original Home Medication information: Not obtained. The following Medications were given to the patient in the Emergency Department: None. The following Medications were prescribed to the patient: Aspirin 81 mg (available over the counter): take 1 orally every 24 hours. Dispense thirty (30). No refills. -- Ramón Marques Dr.
--- NOTE | 2016-05-16 09:18 | ED MED RECONCILIATION SUMMARY ---
Patient: PHILIP STRONG Medication Reconciliation Report [facility] VisitID: [id number] [address] [place] [address] 51y, M Registration Date/Time: 05/13/2016 Weight: 90.7 kg Height/Length: 72 in. BMI: 27.1 ALLERGIES: No Known Drug Allergy The patient's Home Medications are listed below: NONE. The source(s) of the original Home Medication information: Not obtained. The following Medications were given to the patient in the Emergency Department: None. The following Medications were prescribed to the patient: Aspirin 81 mg (available over the counter): take 1 orally every 24 hours. Dispense thirty (30). No refills. -- Ramón Marques Dr.
--- NOTE | 2016-05-16 09:18 | ED MAR SUMMARY ---
..... Medication Administration Record [facility] [address] [place], [place] [id number] Patient: PHILIP STRONG Visit ID: [id number] 51y, M Weight: 90.7 kg Height/Length: 72 in BMI: 27.1 ALLERGIES: No Known Drug Allergy
--- NOTE | 2016-05-16 09:18 | ED MAR SUMMARY ---
..... Medication Administration Record [facility] [address], [place] [id number] Patient: PHILIP STRONG Visit ID: [id number] 51y, M Weight: 90.7 kg Height/Length: 72 in BMI: 27.1 ALLERGIES: No Known Drug Allergy
== END 2016-05-13 20:35 | disposition home or self-care (01) ==
LOC: ED SRH 15:13
DX: R07.89 Other chest pain (principal)
CPT/HCPCS: 90074; 90100; 90616; 92610; 95059

== ENCOUNTER 2016-07-11 15:13 | Emergency (ER) | payer OTHER ==
--- NOTE | 2016-07-11 15:51 | ED ORDER SUMMARY ---
..... Patient: PHILIP STRONG OrderSheet [facility] VisitID: [id number] [address] [place] [address] 51y, M Registration Date/Time: 07/11/2016 ORDER SHEET Weight: 101.6 kg (stated) Allergies: None GENERAL ORDERS: Visual Acuity (15:30 07/11/2016 Alicia Carlos.ACurt-C) (15:38 Alcides Jefferson) MEDICATION ORDERS: Fluorescein Eye Strips 1 strips (NOW) (15:52 07/11/2016 Alicia P.A.-C) Proparacaine Eye Drops (Solution 0.5 %) 1 drop (NOW) (15:52 07/11/2016 Julianlexuan P.A.-C) IV FLUIDS: ORDER SHEET NOTES: [Electronically signed by Monique Holman P.A.-C (16:46 07/11/2016)] [Electronically signed by Elana Ross R.N. (17:35 07/11/2016)] [Electronically locked/signed by Elana Ross R.N. (17:35 07/11/2016)]
--- NOTE | 2016-07-11 15:51 | ED ORDER SUMMARY ---
..... Patient: PHILIP STRONG OrderSheet [facility] VisitID: [id number] [address] [place] [address] 51y, M Registration Date/Time: 07/11/2016 ORDER SHEET Weight: 101.6 kg (stated) Allergies: None GENERAL ORDERS: Visual Acuity (15:30 07/11/2016 Alicia Carlos.ACurt-C) (15:38 Alcides Jefferson) MEDICATION ORDERS: Fluorescein Eye Strips 1 strips (NOW) (15:52 07/11/2016 Alicia P.A.-C) Proparacaine Eye Drops (Solution 0.5 %) 1 drop (NOW) (15:52 07/11/2016 Julianlexuan P.A.-C) IV FLUIDS: ORDER SHEET NOTES: [Electronically signed by Monique Holman P.A.-C (16:46 07/11/2016)] [Electronically signed by Elana Ross R.N. (17:35 07/11/2016)] [Electronically locked/signed by Elana Ross R.N. (17:35 07/11/2016)]
--- NOTE | 2016-07-11 15:51 | ED CLINICAL REPORT ---
Clinical Report - Physicians/Mid Levels [facility] [address] [place] [address] 07/11/2016 15:13 Patient: PHILIP STRONG Time Seen: 1600 Jul 11 2016. Arrived- By private vehicle. Historian- patient. HISTORY OF PRESENT ILLNESS Chief Complaint: EYE PAIN and IRRITATION. This started just prior to arrival, involves the right eye, is characterized as mild and is still present. The patient sustained injury. He has had direct trauma. He has foreign material in the eye (sensation). Not injured from contact lenses. Eye pain and discomfort. ( Patient reports blowing on a table, which had particles on those, and feeling sensation of something into his right eye, was seen in the clinic previously, and continues to have sensation of foreign bodies of the right eye. No prior injury). REVIEW OF SYSTEMS No sore throat. All systems otherwise negative, except as recorded above. PAST HISTORY No history of prior eye injury, diabetes mellitus or glaucoma. He does not wear contact lenses. Problems: Atypical Chest Pain. Pharyngitis. Chest Wall Pain. Abdominal Pain. Additional Surgeries: Hand surgery. Tonsillectomy. Medications: None. Allergies: None. SOCIAL HISTORY Never smoker. No alcohol use or drug use. ADDITIONAL NOTES The nursing notes have been reviewed. PHYSICAL EXAM Vital Signs: 07/11/2016 15:18 BP: 145/102. HR: 77. RR: 16. O2 saturation: 99%. Temp: 98.2 F. Pain level now: 4/10. Appearance: Alert. HEENT: Ears normal. Head appears normal to external inspection. Normal TMs. Rt Eye: Right eye exam normal. Injected conjunctiva (right lateral). Corneal abrasion present. Fluorescein dye uptake on the cornea (upper aspect, not in vision). Pupil regular. No eyelid edema or erythema or EOM palsy. No stye present. No foreign body under the eyelid. No injury to the eyelids. No exudate present. Eyes: Visual acuity noted. Right eyelid everted for examination. Pupils equal, round and reactive to light. EOMs intact. Periorbital areas appear normal to inspection. Anterior chambers clear. Lt Eye: Left eye exam normal. Neck: Neck supple. CVS: Normal heart rate and rhythm. Heart sounds normal. Respiratory: No respiratory distress. Breath sounds normal. Neuro: Oriented X 3. PROGRESS AND PROCEDURES Course of Care: left eye 20/15; right eye 20/70; both eyes 20/15 hand air patient with small dye uptake, however not in vision field, patient's symptoms are on the right lateral side, no signs of foreign object, lid swept, and no signs of any injury to search. Patient very stable, informed to follow-up with ophthalmology. Symptoms persist. Understands the plan, will start him on antibiotics given a small abrasion is noted. No signs of penetrating trauma. No signs of fb. Patient is stable. Symptoms better. Patient/family counseled. Disposition: Discharged. Condition: good. CLINICAL IMPRESSION Small corneal abrasion to the right eye. INSTRUCTIONS (cool packs). Prescription Medications: Polytrim ophthalmic solution: Instill 1 drop into affected eye every 3 hours while awake (max 6 doses per day) for 1 week. Dispense five (5) mL. No refills. Substitution is permissible. OTC Medications: Take OTC medications according to label instructions. Available over the counter. Acetaminophen (available over the counter): take according to label instructions. Motrin (available over the counter): take according to label instructions. Follow-up with: Sadia Freitas MD, Ophthalmology, [facility], [address] [place] [address] - [address], , [place] [address] Follow up Saturday. Call for the next available appointment. (Electronically signed by Monique Holman P.A.-C 07/11/2016 16:46)
--- NOTE | 2016-07-11 15:51 | ED NURSING NOTES ---
Clinical Report - Nurses [facility] [address] [place] [address] 07/11/2016 15:13 Patient: PHILIP STRONG TRIAGE Triage time 15:18 Jul 11 2016. Acuity: LEVEL 4. Chief Complaint: REDNESS and PAIN TO RIGHT EYE. Alert. --15:25 Elana Ross R.N. 15:18 07/11/16. BP: 145/102. HR: 77. RR: 16. O2 saturation: 99%. Temp: 98.2 F. Pain level now: 07/23. --15:25 Elana Ross R.N. Weight: 101.6 kg stated. Height/Length: 72 inches Per Patient. BMI: 30.4. --15:20 Elana Ross R.N. Medications None. --15:21 Elana Ross R.N. Allergies None. --15:21 Elana Ross R.N. History Arrived by private vehicle. Historian: patient. This started just prior to arrival. He may have sustained an injury. He has had eye discomfort. He has had watery discharge from the right eye. Treatment HAND ICER: Irrigation. PAST MEDICAL HX: Immunizations: up-to-date. SOCIAL HX: Never smoker. No alcohol use or drug use. No infectious disease exposure. SELF HARM ASSESSMENT: A self harm assessment was performed. The patient answered "no" to the question "Do you have thoughts of harming or killing yourself?". FALL RISK ASSESSMENT: Fall risk assessment completed. No fall risk identified. NUTRITIONAL RISK ASSESSMENT: The nutritional risk assessment revealed no deficiencies. FUNCTIONAL ASSESSMENT: Functional assessment: no impairments noted. LEARNING NEEDS ASSESSMENT: The learning needs assessment revealed no barriers. ABUSE ASSESSMENT: Abuse assessment: The patient was asked "Do you feel safe in your home?". SKIN INTEGRITY ASSESSMENT: Skin integrity risk assessment completed. No skin integrity risk identified. --15:25 Elana Ross R.N. PROBLEMS: Atypical Chest Pain. Pharyngitis. Chest Wall Pain. Abdominal Pain. --15:22 Elana Ross R.N. ADDITIONAL SURGERIES: Hand surgery. Tonsillectomy. --15:22 Elana Ross R.N. Interventions ID band on patient. --15:25 Elana Ross R.N. PHYSICAL ASSESSMENT GENERAL / NEURO / PSYCH: Alert. Appears in no acute distress. HEENT: Conjunctival findings present: redness of the right conjunctiva and clear exudate present in the right eye. RESPIRATORY: Respirations not labored. SKIN: Skin is warm and dry. --15:25 Elana Ross R.N. NURSING PROGRESS NOTES Patient identifiers checked. Call light placed in reach. Side rails up x 1. Bed placed in lowest position. Brakes of bed on. Patient ready for evaluation- chart flagged. --15:26 Elana Ross R.N. 15:29 07/11/16. VISUAL ACUITY: Visual acuity performed without corrective lenses: left eye 20/15; right eye 20/70; both eyes 20/15. --15:29 Corina Mejia. DISPOSITION / DISCHARGE Departure time: 15:54 Jul 11 2016. Condition at departure: unchanged. No learning barriers present. Discharge instructions provided and reviewed with the patient. Reviewed medication(s) side effects, precautions, dosing and course information. Reviewed referral to an building drafter. Patient verbalized understanding. Written instructions provided in Panamanian. The patient was discharged home. He left the Emergency Department ambulatory and via private vehicle. Patient driving. FALL RISK ASSESSMENT: Fall risk assessment completed. No fall risk identified. --15:55 Elana Ross R.N. Locked/Released at 07/11/2016 17:35 by Elana Ross R.N.
--- NOTE | 2016-07-11 15:51 | ED NURSING NOTES ---
Clinical Report - Nurses [facility] [address] [place] [address] 07/11/2016 15:13 Patient: PHILIP STRONG TRIAGE Triage time 15:18 Jul 11 2016. Acuity: LEVEL 4. Chief Complaint: REDNESS and PAIN TO RIGHT EYE. Alert. --15:25 Elana Ross R.N. 15:18 07/11/16. BP: 145/102. HR: 77. RR: 16. O2 saturation: 99%. Temp: 98.2 F. Pain level now: 07/23. --15:25 Elana Ross R.N. Weight: 101.6 kg stated. Height/Length: 72 inches Per Patient. BMI: 30.4. --15:20 Elana Ross R.N. Medications None. --15:21 Elana Ross R.N. Allergies None. --15:21 Elana Ross R.N. History Arrived by private vehicle. Historian: patient. This started just prior to arrival. He may have sustained an injury. He has had eye discomfort. He has had watery discharge from the right eye. Treatment PRODUCTION MACHINE TENDER: Irrigation. PAST MEDICAL HX: Immunizations: up-to-date. SOCIAL HX: Never smoker. No alcohol use or drug use. No infectious disease exposure. SELF HARM ASSESSMENT: A self harm assessment was performed. The patient answered "no" to the question "Do you have thoughts of harming or killing yourself?". FALL RISK ASSESSMENT: Fall risk assessment completed. No fall risk identified. NUTRITIONAL RISK ASSESSMENT: The nutritional risk assessment revealed no deficiencies. FUNCTIONAL ASSESSMENT: Functional assessment: no impairments noted. LEARNING NEEDS ASSESSMENT: The learning needs assessment revealed no barriers. ABUSE ASSESSMENT: Abuse assessment: The patient was asked "Do you feel safe in your home?". SKIN INTEGRITY ASSESSMENT: Skin integrity risk assessment completed. No skin integrity risk identified. --15:25 Elana Ross R.N. PROBLEMS: Atypical Chest Pain. Pharyngitis. Chest Wall Pain. Abdominal Pain. --15:22 Elana Ross R.N. ADDITIONAL SURGERIES: Hand surgery. Tonsillectomy. --15:22 Elana Ross R.N. Interventions ID band on patient. --15:25 Elana Ross R.N. PHYSICAL ASSESSMENT GENERAL / NEURO / PSYCH: Alert. Appears in no acute distress. HEENT: Conjunctival findings present: redness of the right conjunctiva and clear exudate present in the right eye. RESPIRATORY: Respirations not labored. SKIN: Skin is warm and dry. --15:25 Elana Ross R.N. NURSING PROGRESS NOTES Patient identifiers checked. Call light placed in reach. Side rails up x 1. Bed placed in lowest position. Brakes of bed on. Patient ready for evaluation- chart flagged. --15:26 Elana Ross R.N. 15:29 07/11/16. VISUAL ACUITY: Visual acuity performed without corrective lenses: left eye 20/15; right eye 20/70; both eyes 20/15. --15:29 Corina Mejia. DISPOSITION / DISCHARGE Departure time: 15:54 Jul 11 2016. Condition at departure: unchanged. No learning barriers present. Discharge instructions provided and reviewed with the patient. Reviewed medication(s) side effects, precautions, dosing and course information. Reviewed referral to an executive consultant. Patient verbalized understanding. Written instructions provided in Danish. The patient was discharged home. He left the Emergency Department ambulatory and via private vehicle. Patient driving. FALL RISK ASSESSMENT: Fall risk assessment completed. No fall risk identified. --15:55 Elana Ross R.N. Locked/Released at 07/11/2016 17:35 by Elana Ross R.N.
--- NOTE | 2016-07-11 15:51 | ED CLINICAL REPORT ---
Clinical Report - Physicians/Mid Levels [facility] [address] [place] [address] 07/11/2016 15:13 Patient: PHILIP STRONG Time Seen: 1600 Jul 11 2016. Arrived- By private vehicle. Historian- patient. HISTORY OF PRESENT ILLNESS Chief Complaint: EYE PAIN and IRRITATION. This started just prior to arrival, involves the right eye, is characterized as mild and is still present. The patient sustained injury. He has had direct trauma. He has foreign material in the eye (sensation). Not injured from contact lenses. Eye pain and discomfort. ( Patient reports blowing on a table, which had particles on those, and feeling sensation of something into his right eye, was seen in the clinic previously, and continues to have sensation of foreign bodies of the right eye. No prior injury). REVIEW OF SYSTEMS No sore throat. All systems otherwise negative, except as recorded above. PAST HISTORY No history of prior eye injury, diabetes mellitus or glaucoma. He does not wear contact lenses. Problems: Atypical Chest Pain. Pharyngitis. Chest Wall Pain. Abdominal Pain. Additional Surgeries: Hand surgery. Tonsillectomy. Medications: None. Allergies: None. SOCIAL HISTORY Never smoker. No alcohol use or drug use. ADDITIONAL NOTES The nursing notes have been reviewed. PHYSICAL EXAM Vital Signs: 07/11/2016 15:18 BP: 145/102. HR: 77. RR: 16. O2 saturation: 99%. Temp: 98.2 F. Pain level now: 4/10. Appearance: Alert. HEENT: Ears normal. Head appears normal to external inspection. Normal TMs. Rt Eye: Right eye exam normal. Injected conjunctiva (right lateral). Corneal abrasion present. Fluorescein dye uptake on the cornea (upper aspect, not in vision). Pupil regular. No eyelid edema or erythema or EOM palsy. No stye present. No foreign body under the eyelid. No injury to the eyelids. No exudate present. Eyes: Visual acuity noted. Right eyelid everted for examination. Pupils equal, round and reactive to light. EOMs intact. Periorbital areas appear normal to inspection. Anterior chambers clear. Lt Eye: Left eye exam normal. Neck: Neck supple. CVS: Normal heart rate and rhythm. Heart sounds normal. Respiratory: No respiratory distress. Breath sounds normal. Neuro: Oriented X 3. PROGRESS AND PROCEDURES Course of Care: left eye 20/15; right eye 20/70; both eyes 20/15 hand air patient with small dye uptake, however not in vision field, patient's symptoms are on the right lateral side, no signs of foreign object, lid swept, and no signs of any injury to search. Patient very stable, informed to follow-up with ophthalmology. Symptoms persist. Understands the plan, will start him on antibiotics given a small abrasion is noted. No signs of penetrating trauma. No signs of fb. Patient is stable. Symptoms better. Patient/family counseled. Disposition: Discharged. Condition: good. CLINICAL IMPRESSION Small corneal abrasion to the right eye. INSTRUCTIONS (cool packs). Prescription Medications: Polytrim ophthalmic solution: Instill 1 drop into affected eye every 3 hours while awake (max 6 doses per day) for 1 week. Dispense five (5) mL. No refills. Substitution is permissible. OTC Medications: Take OTC medications according to label instructions. Available over the counter. Acetaminophen (available over the counter): take according to label instructions. Motrin (available over the counter): take according to label instructions. Follow-up with: Sadia Freitas MD, Ophthalmology, [facility], [address] [place] [address] - [address], , [place] [address] Follow up Saturday. Call for the next available appointment. (Electronically signed by Monique Holman P.A.-C 07/11/2016 16:46)
--- NOTE | 2016-07-11 17:35 | ED MED RECONCILIATION SUMMARY ---
Patient: PHILIP STRONG Medication Reconciliation Report [facility] VisitID: [id number] [place] [address] 51y, M Registration Date/Time: 07/11/2016 Weight: 101.6 kg Height/Length: 72 in. BMI: 30.4 ALLERGIES: None The patient's Home Medications are listed below: NONE. The source(s) of the original Home Medication information: Not obtained. The following Medications were given to the patient in the Emergency Department: None. The following Medications were prescribed to the patient: Take OTC medications according to label instructions. Available over the counter. -- Monique Holmna, P.A.-C Acetaminophen (available over the counter): take according to label instructions. -- Monique Holman, P.A.-C Motrin (available over the counter): take according to label instructions. -- Monique Holman P.A.-C Polytrim ophthalmic solution: Instill 1 drop into affected eye every 3 hours while awake (max 6 doses per day) for 1 week. Dispense five (5) mL. No refills. Substitution is permissible. -- Monique Holman, P.A.-C
--- NOTE | 2016-07-11 17:35 | ED DISCHARGE INSTRUCTIONS ---
Patient: PHILIP STRONG General Instructions [facility] VisitID: [id number] [place] [address] 51y, M Registration Date/Time: 07/11/2016 Small corneal abrasion to the right eye. INSTRUCTIONS (cool packs). Prescription Medications: Polytrim ophthalmic solution: Instill 1 drop into affected eye every 3 hours while awake (max 6 doses per day) for 1 week. Dispense five (5) mL. No refills. Substitution is permissible. OTC Medications: Take OTC medications according to label instructions. Available over the counter. Acetaminophen (available over the counter): take according to label instructions. Motrin (available over the counter): take according to label instructions. Follow-up with: Sadia Freitas MD, Ophthalmology, [facility], [address] [place] [address] - [address], [place] [address] Follow up Saturday. Call for the next available appointment. ADDITIONAL INFORMATION Corneal Abrasion The cornea is the clear part in the front of the eye. This sensitive area is very painful when injured. There may be tearing and your vision may be blurry until healing occurs. You may be sensitive to light. This part of the body heals quickly. You can expect the pain to go away within 24-48 hours. If the abrasion is large or deep, your doctor may apply an eye patch, although this is not always done. An antibiotic ointment or eye drops may also be used to prevent infection. Numbing drops may be used to relieve the pain temporarily so that your eyes can be examined. However, these drops cannot be prescribed for home use because that would slow down the healing process. Also, if you cant feel your eye, there is a chance of accidentally injuring your eye further without knowing it. Home Care: A cold pack (ice in a plastic bag, wrapped in a towel) may be applied over the eye (or eyepatch) for 20 minutes at a time, to reduce pain. You may use acetaminophen (Tylenol) or ibuprofen (Motrin, Advil) to control pain, unless another pain medicine was prescribed. [NOTE: If you have chronic liver or kidney disease or ever had a stomach ulcer or GI bleeding, talk with your doctor before using these medicines.] Rest your eyes and do not read until symptoms are gone. If you use contact lenses, do not wear them until all symptoms are gone. If your vision is affected by the corneal abrasion or if an eyepatch was applied, DO NOT DRIVE a motor vehicle or operate machinery until all symptoms are gone. Otherwise, you would have trouble judging distances with only one eye. If your eyes are sensitive to light, try wearing sunglasses, or stay indoors, until symptoms go away. Follow Up as advised by our staff. Serious abrasions may be referred to an academic support specialist (security team lead). If no patch was used but the pain continues for more than 48 hours, you should have another exam. Return to this facility or contact the referral doctor to arrange this. If your eye was patched and if you were asked to remove the patch yourself, see your doctor or return to this facility if your pain is still present after the patch is removed. If you were given a return appointment for patch removal and re-exam, do not miss this. It could be harmful if the patch remains in place longer than advised. Get Prompt Medical Attention if any of the following occur: Increasing eye pain or pain that does not improve after 24 hours Discharge from the eye Increasing redness of the eye or swelling of the eyelids Your vision gets worse You have been given the following additional information: Corneal Abrasion (Electronically signed by Monique Holman P.A.-C 07/11/2016 16:46)
--- NOTE | 2016-07-11 17:35 | ED MAR SUMMARY ---
..... Medication Administration Record [facility] [address] [place] [id number] Patient: PHILIP STRONG Visit ID: [id number] 51y, M Weight: 101.6 kg Height/Length: 72 in BMI: 30.4 ALLERGIES: None
--- NOTE | 2016-07-11 17:35 | ED DISCHARGE INSTRUCTIONS ---
Patient: PHILIP STRONG General Instructions [facility] VisitID: [id number] [place] [address] 51y, M Registration Date/Time: 07/11/2016 Small corneal abrasion to the right eye. INSTRUCTIONS (cool packs). Prescription Medications: Polytrim ophthalmic solution: Instill 1 drop into affected eye every 3 hours while awake (max 6 doses per day) for 1 week. Dispense five (5) mL. No refills. Substitution is permissible. OTC Medications: Take OTC medications according to label instructions. Available over the counter. Acetaminophen (available over the counter): take according to label instructions. Motrin (available over the counter): take according to label instructions. Follow-up with: Sadia Freitas MD, Ophthalmology, [facility], [address] [place] [address] - [address], [place] [id number] Follow up Saturday. Call for the next available appointment. ADDITIONAL INFORMATION Corneal Abrasion The cornea is the clear part in the front of the eye. This sensitive area is very painful when injured. There may be tearing and your vision may be blurry until healing occurs. You may be sensitive to light. This part of the body heals quickly. You can expect the pain to go away within 24-48 hours. If the abrasion is large or deep, your doctor may apply an eye patch, although this is not always done. An antibiotic ointment or eye drops may also be used to prevent infection. Numbing drops may be used to relieve the pain temporarily so that your eyes can be examined. However, these drops cannot be prescribed for home use because that would slow down the healing process. Also, if you cant feel your eye, there is a chance of accidentally injuring your eye further without knowing it. Home Care: A cold pack (ice in a plastic bag, wrapped in a towel) may be applied over the eye (or eyepatch) for 20 minutes at a time, to reduce pain. You may use acetaminophen (Tylenol) or ibuprofen (Motrin, Advil) to control pain, unless another pain medicine was prescribed. [NOTE: If you have chronic liver or kidney disease or ever had a stomach ulcer or GI bleeding, talk with your doctor before using these medicines.] Rest your eyes and do not read until symptoms are gone. If you use contact lenses, do not wear them until all symptoms are gone. If your vision is affected by the corneal abrasion or if an eyepatch was applied, DO NOT DRIVE a motor vehicle or operate machinery until all symptoms are gone. Otherwise, you would have trouble judging distances with only one eye. If your eyes are sensitive to light, try wearing sunglasses, or stay indoors, until symptoms go away. Follow Up as advised by our staff. Serious abrasions may be referred to an computer technical support specialist (field training manager). If no patch was used but the pain continues for more than 48 hours, you should have another exam. Return to this facility or contact the referral doctor to arrange this. If your eye was patched and if you were asked to remove the patch yourself, see your doctor or return to this facility if your pain is still present after the patch is removed. If you were given a return appointment for patch removal and re-exam, do not miss this. It could be harmful if the patch remains in place longer than advised. Get Prompt Medical Attention if any of the following occur: Increasing eye pain or pain that does not improve after 24 hours Discharge from the eye Increasing redness of the eye or swelling of the eyelids Your vision gets worse You have been given the following additional information: Corneal Abrasion (Electronically signed by Monique Holman P.A.-C 07/11/2016 16:46)
--- NOTE | 2016-07-11 17:35 | ED MED RECONCILIATION SUMMARY ---
Patient: PHILIP STRONG Medication Reconciliation Report [facility] VisitID: [id number] [place] [address] 51y, M Registration Date/Time: 07/11/2016 Weight: 101.6 kg Height/Length: 72 in. BMI: 30.4 ALLERGIES: None The patient's Home Medications are listed below: NONE. The source(s) of the original Home Medication information: Not obtained. The following Medications were given to the patient in the Emergency Department: None. The following Medications were prescribed to the patient: Take OTC medications according to label instructions. Available over the counter. -- Monique Holman, P.A.-C Acetaminophen (available over the counter): take according to label instructions. -- Monique Holman, P.A.-C Motrin (available over the counter): take according to label instructions. -- Monique Holman P.A.-C Polytrim ophthalmic solution: Instill 1 drop into affected eye every 3 hours while awake (max 6 doses per day) for 1 week. Dispense five (5) mL. No refills. Substitution is permissible. -- Monique Holman, P.A.-C
--- NOTE | 2016-07-11 17:35 | ED MAR SUMMARY ---
..... Medication Administration Record [facility] [address] [place], [place] [id number] Patient: PHILIP STRONG Visit ID: [id number] 51y, M Weight: 101.6 kg Height/Length: 72 in BMI: 30.4 ALLERGIES: None
== END 2016-07-11 15:49 | disposition home or self-care (01) ==
LOC: ED SRH 15:13
DX: S05.01XA Injury of conjunctiva and corneal abrasion without foreign body, right eye, initial encounter (principal); X58.XXXA Exposure to other specified factors, initial encounter; Y93.9 Activity, unspecified; Y92.9 Unspecified place or not applicable; Y99.9 Unspecified external cause status